=== PATIENT | male | born 1975 | race Caucasian/White ===

== ENCOUNTER 2019-09-30 13:36 | Emergency (ER) | payer BC ==
--- NOTE | 2019-09-30 16:42 | EDM.PDOC ---
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 lives with sig other who is not ill brings up sputum, feels like there is "something in my upper chest" no fever at home, none here no h/o asthma or hayfever says "I am never ill", feeling worse has had rhinorrhea, generalized ARIZMENDI today does have minimal nasal swelling, PE otherwise unremarkable except coarse/harsh cough Treatments [employer]OR: Reports: Other Medication(s), Other (see below) Other Treatments [employer]OR: mucinex - Related Data Allergies Allergy/AdvReac Type Severity Reaction Status Date / Time No Known Allergies Allergy Verified 09/30/19 14:03 Home Meds: Home Meds Azithromycin 250 mg PO DAILY #6 tablet 09/30/19 [Rx] Benzonatate 100 mg PO TID #21 capsule 09/30/19 [Rx] predniSONE 20 mg PO DAILY #8 tab 09/30/19 [Rx] Past Medical History - Past Health History Medical/Surgical History: Denies Medical/Surgical History Social & Family History - Family History Family Medical History: Noncontributory - Tobacco Use Smoking Status *Q: Never Smoker - Caffeine Use Caffeine Use: Reports: None - Recreational Drug Use Recreational Drug Use: No ED ROS GENERAL - Review of Systems Review Of Systems: See Below Constitutional: Reports: Fatigue HEENT: Reports: No Symptoms Respiratory: Reports: Cough, Sputum Cardiovascular: Reports: No Symptoms Endocrine: Reports: No Symptoms GI/Abdominal: Reports: No Symptoms : Reports: No Symptoms Musculoskeletal: Reports: No Symptoms Skin: Reports: No Symptoms Neurological: Reports: No Symptoms Psychiatric: Reports: No Symptoms Hematologic/Lymphatic: Reports: No Symptoms Immunologic: Reports: No Symptoms ED EXAM, GENERAL - Physical Exam Exam: See Below Exam Limited By: No Limitations General Appearance: Alert, WD/WN, No Apparent Distress Ears: Normal External Exam, Normal Canal, Hearing Grossly Normal, Normal TMs Nose: Normal Inspection, Normal Mucosa, No Blood, Other (minimal swell 30% of L nares only, clear d/c, no sinus tender) Throat/Mouth: Normal Inspection, Normal Lips, Normal Teeth, Normal Gums, Normal Oropharynx, Normal Voice, No Airway Compromise Head: Atraumatic, Normocephalic Neck: Normal Inspection, Supple, Non-Tender, Full Range of Motion. No: Lymphadenopathy (R), Lymphadenopathy (L) Respiratory/Chest: No Respiratory Distress, Lungs Clear, Normal Breath Sounds, No Accessory Muscle Use, Chest Non-Tender, Other (occasional cough, no wheeze with cough) Cardiovascular: Regular Rate, Rhythm, No Edema, No Gallop, No JVD, No Murmur, No Rub GI/Abdominal: Soft, Non-Tender Back Exam: Normal Inspection Extremities: Normal Inspection, Normal Range of Motion, Non-Tender, No Pedal Edema Neurological: Alert, Oriented, CN II-XII Intact, Normal Cognition, No Motor/ Sensory Deficits Psychiatric: Normal Affect, Normal Mood Skin Exam: Warm, Dry, Intact, Normal Color, No Rash Course - Vital Signs Last Recorded V/S: Last Vital Signs Temp 37.5 C 09/30/19 13:45 Pulse 84 09/30/19 13:45 Resp 18 09/30/19 13:45 BP 138/92 H 09/30/19 13:45 Pulse Ox 99 09/30/19 13:45 - Orders/Labs/Meds Orders: Active Orders 24 hr Category Date Time Status Chest 2V [CR] Stat Exams 09/30/19 14:21 Taken Labs: Laboratory Tests 09/30/19 Range/Units 14:41 WBC 9.8 (4.5-12.0) X10-3/uL RBC 4.80 (4.30-5.75) x10(6)uL Hgb 14.5 (13.5-17.8) g/dL Hct 42.4 (30.0-51.3) % MCV 88.5 (80-96) fL MCH 30.3 (27.7-33.6) pg MCHC 34.2 (32.2-35.4) g/dL RDW 11.8 (11.5-15.5) % Plt Count 351 (125-369) X10(3)uL MPV 7.0 L (7.4-10.4) fL Neut % (Auto) 74.1 (46-82) % Lymph % (Auto) 10.5 L (13-37) % Hartley % (Auto) 14.1 H (4-12) % Eos % (Auto) 1 (1.0-5.0) % Baso % (Auto) 0 (0-2) % Neut # (Auto) 7.3 (1.6-8.3) # Lymph # (Auto) 1.0 (0.6-5.0) # Hartley # (Auto) 1.4 H (0.0-1.3) # Eos # (Auto) 0.1 (0.0-0.8) # Baso # (Auto) 0.0 (0.0-0.2) # Departure - Departure Time of Disposition: 16:42 Disposition: Home, Self-Care 01 Condition: Good Clinical Impression: Acute bronchitis - Discharge Information *PRESCRIPTION DRUG MONITORING PROGRAM REVIEWED*: Not Applicable *COPY OF PRESCRIPTION DRUG MONITORING REPORT IN PATIENT FREDO: Not Applicable Prescriptions: Azithromycin 250 mg PO DAILY #6 tablet Benzonatate 100 mg PO TID #21 capsule predniSONE 20 mg PO DAILY #8 tab Instructions: Acute Bronchitis, Adult Referrals: Milli Stone PA [Primary Care Provider] - Forms: ED Department Discharge, ED Return to Work/School Form Additional Instructions: For infection, take azithromycin 250 mg 2 tabs today, then 1 tab daily for 4 days. For inflammation and to open airways, take prednisone 20 mg 2 tabs today, then 1 tab daily for 6 days. For cough, take benzonatate 100 mg 1 capsule 3 times a day for 7 days. No work for 5 days. See your doctor in 5-7 days if you are not much better. Return to ED if you are feeling worse. Sepsis Event Note - Evaluation Sepsis Screening Result: No Definite Risk - Focused Exam Vital Signs: Vital Signs Temp Pulse Resp BP Pulse Ox 09/30/19 13:45 37.5 C 84 18 138/92 H 99 Date Exam was Performed: 09/30/19 Time Exam was Performed: 16:36 - My Orders Last 24 Hours: My Active Orders 09/30/19 14:21 Chest 2V [CR] Stat - Assessment/Plan Last 24 Hours: My Active Orders 09/30/19 14:21 Chest 2V [CR] Stat
== END 2019-09-30 16:54 | disposition home or self-care (01) ==
LOC: FB.ED 13:36
DX: J20.9 Acute bronchitis, unspecified (principal); Z79.899 Other long term (current) drug therapy
CPT/HCPCS: 36415; 71046; 85025; 99284-25